=== PATIENT | male | born 1990 | race Caucasian/White ===

== ENCOUNTER 2023-12-23 12:44 | Emergency (ER) | payer SELFPAY ==
[2023-12-23] MEDS: Doxycycline 100 MG Cap PO ONE (13:20)
== END 2023-12-23 13:25 | disposition home or self-care (01) ==
LOC: EDBD 12:44 → MERGE 12:44 → MW.ED 12:44
DX: L03.317 Cellulitis of buttock (principal); L02.31 Cutaneous abscess of buttock; Z75.8 Other problems related to medical facilities and other health care
CPT/HCPCS: 99283; A9270